=== PATIENT | male | born 1985 | race Caucasian/White ===

== ENCOUNTER 2020-12-11 15:15 | Emergency (ER) | payer OTHER, SELFPAY ==
--- NOTE | ~2020-12-11 | XR_ITS ---
EXAMINATION: XR wrist RT min 3V DATE: 12/11/2020 15:36 INDICATION: Right wrist pain. Fall. TECHNIQUE: 4 views of right wrist were obtained. COMPARISON: None. FINDINGS: Bone alignment is normal. There is a nondisplaced oblique fracture of radial styloid with e xtension of a fracture line to the lunate fossa. There is no involvement of the distal radioulnar isiah nt. The ulnar styloid is intact. Joint spaces are normal. IMPRESSION: 1. Nondisplaced oblique fracture of the radial styloid. Reviewed, dictated and finalized at location A. HAND
[2020-12-11 15:21] VITALS: BP 156/66; PULSE 95; RESP 16; TEMP 36.6; O2SAT 100
[2020-12-11 15:30] VITALS: BP 156/66; PULSE 95; RESP 16; TEMP 36.6; O2SAT 100
--- NOTE | 2020-12-11 15:42 | ED.UPPEXIN ---
HPI - Extremity Injury (Upper) General Chief Complaint: Extremity Injury, Upper Stated Complaint: right Wrist Injury Time Seen by Provider: 12/11/20 15:43 Source: patient and RN notes reviewed Mode of arrival: ambulatory Limitations: no limitations History of Present Illness HPI narrative: 35 year old male who fell on the ice at his home within past hour prior to arrival at [facility]. Patient states that he tried to catch himself with his right hand and he felt a pop in his writ area with pain and swelling noted to dorsal aspect of his right wrist. Patient states that pain increases with attempted movement of his wrist, has taken Ibuprofen prior to arrival and has applied ice to his right wrist. Patient has strong right radial pulse, noted swelling to dorsal area of right wrist with point tenderness to radial aspect of wrist. Patient denies any tingling or numbness to his right forearm or fingers, nail beds have brisk capillary refill, describes pain as dull ache rates at 5/10. Patient is right hand dominant. MD complaint: injury to: right Onset (ago): hour(s) (1) Other Extremity Injury: Right: wrist (right wrist) Handedness: right Place: home and outdoors Severity: moderate Severity scale (1-10): 5 Relieving factors: rest Exacerbating factors: movement of extremity Context: fall Related Data Home Medications Medication Instructions Recorded Confirmed No Home Medications 12/11/20 12/11/20 Allergies Allergy/AdvReac Type Severity Reaction Status Date / Time No Known Drug Allergies Allergy Unknown Unknown Verified 12/11/20 15:29 Review of Systems Review of Systems: Narrative: CONSTITUTIONAL: Denies fever, chills, or sweats. EYES: Denies visual changes, redness, or discharge. ENT: Denies rhinorrhea, congestion, sore throat, or otalgia. CARDIOVASCULAR: Denies chest pain, palpitations, or edema. RESPIRATORY: Denies cough or dyspnea. GASTROINTESTINAL: Denies abdominal pain, nausea, vomiting, or diarrhea. GENITOURINARY: Denies dysuria or hematuria. SKIN: Denies rash or itching. MUSCULOSKELETAL: Denies back pain,positive for right wrist pain, or myalgia. NEUROLOGIC: Denies headache, numbness, or weakness. PSYCHIATRIC: Denies anxiety or depression. All systems reviewed & are unremarkable except as noted in HPI and below PMFSH Past Medical History Medical History (Updated 12/12/20 @ 00:00 by Elbert Benoit) GERD (gastroesophageal reflux disease) Sprain of medial collateral ligament of knee Surgical History Surgical History (Updated 12/11/20 @ 15:58 by Tata Jaramillo NP) History of wisdom tooth extraction, class II edentulism Family History Family History (Updated 12/11/20 @ 16:02 by Tata Jaramillo NP) Father Hypertension Social History Social History (Updated 12/11/20 @ 16:02 by Tata Jaramillo NP) Smoking status: Never smoker Alcohol intake: current Alcohol use details: social Substance use: never Living arrangements: with family Gender identity (if verbalized by the patient): Male Comments At time of signature, agree with nursing past medical, surgical, social and family history. There is no relevant family history pertinent to the presenting complaint Exam Narrative: Exam Narrative: GENERAL: Well-appearing, well-nourished, and in mild acute distress. HEAD: Normocephalic, atraumatic. EYES: PERRLA and EOMI. ENT: Nares clear, no rhinorrhea or epistaxis. Mucous membranes moist. NECK: Supple.no lymphadenopathy CHEST: Clear to auscultation. No respiratory distress.SAO2 100% on room air. HEART: Regular rate and rhythm. No murmur heard. Normal peripheral pulses. ABDOMEN: Soft, nontender, nondistended, normal active bowel sounds. EXTREMITIES: Normal range of motion. No edema with exception to pain and swelling to dorsal aspect of right wrist with point tenderness to radial area of wrist and increase in pain with attempted movement of wrist.Patient has strong right radial pulse with
== END 2020-12-11 16:20 | disposition home or self-care (01) ==
PROVIDERS: Emergency Provider Registered Nurse; PCP Family Medicine
DX: S52.514A Nondisplaced fracture of right radial styloid process, initial encounter for closed fracture (principal); W00.0XXA Fall on same level due to ice and snow, initial encounter; K21.9 Gastro-esophageal reflux disease without esophagitis
CPT/HCPCS: 29125; 73110; 99204; A4565; G0463

== ENCOUNTER 2025-06-07 08:13 | Emergency (ER) | payer OTHER, SELFPAY ==
--- NOTE | ~2025-06-07 | XR_ITS ---
EXAM/ PROCEDURE: XR foot RT min 3V - 06/07/2025 8:32 CDT HISTORY: 40 years old Male with pain/bruising Rt 5th toe, stubbed last night COMPARISON: None available TECHNIQUE: Four view(s) FINDINGS/ IMPRESSION: Acute nondisplaced transverse fracture of the base of the fifth proximal phalanx. Surrounding soft ti ssue injury. Chronic healing fracture versus os perineum at the base of the fifth metatarsal. Correlate with point tenderness to rule out acute/subacute fracture at this spot. Joint space narrowing, subchondral sclerosis, subchondral cyst formation and osteophyte formation, co mpatible with moderate osteoarthritis. Reviewed, dictated and finalized at location A.
--- NOTE | 2025-06-07 08:16 | ED.LOWEXIN ---
HPI - Extremity Injury (Lower) General Chief Complaint: Extremity Injury, Lower Stated Complaint: toe pain r foot Time Seen by Provider: 06/07/25 08:25 Source: patient, RN notes reviewed and old records reviewed Mode of arrival: ambulatory Limitations: no limitations History of Present Illness HPI Narrative: 40-year-old male presents to the [facility] with complaints of 5th toe right foot pain after stubbing it. Patient reports that he stubbed the 5th toe on a piece of furniture approximately 7:00 p.m. last night. Did take ibuprofen this morning. Pain with walking. No pain with rest and elevation. Mild bruising at the Onset (ago): hour(s) (13) Treatments prior to arrival: NSAIDS Related Data Home Medications ?Medication ?Instructions ?Recorded ?Confirmed ?Last Taken ?Type No Home Medications 12/11/20 06/07/25 Unknown History Allergies Allergy/AdvReac Type Severity Reaction Status Date / Time No Known Drug Allergies Allergy Unknown Unknown Verified 06/07/25 08:26 Review of Systems Review of Systems: All systems reviewed & are unremarkable except as noted in HPI and below Constitutional: Constitutional: Reports no additional constitutional complaints Musculoskeletal: Musculoskeletal: Reports as per HPI, Reports arthralgias, Denies joint swelling and Denies numbness Integumentary/Breasts: Skin/Breast: Reports as per HPI PMFSH Past Medical History Medical History Sprain of medial collateral ligament of knee GERD (gastroesophageal reflux disease) Surgical History Surgical History History of wisdom tooth extraction, class II edentulism Family History Family History Father Hypertension Social History Social History Smoking status: Never smoker Alcohol intake: current Alcohol use details: social Substance use: never Living arrangements: with family Gender identity (if verbalized by the patient): Male Comments At the time of my signature, I reviewed and agree with the nursing past medical, surgical, social, and family history. There is no relevant family history pertinent to the patient complaint. Exam Const: General: cooperative, healthy appearing, comfortable, no acute distress, well developed, alert and well nourished Nutritional Appearance: well nourished Orientation/consciousness: patient oriented x3 Limitations: no limitations HENMT: Head: normal to inspection Eyes: General: appearance normal, both eyes and all related structures Alignment and Position: alignment normal Neck: Neck: normal visual inspection, full ROM, no lymphadenopathy and no meningeal signs Chest: Chest palpation & inspection: normal inspection of the chest Resp: Effort & Inspection: normal respiratory effort and able to speak in complete sentences Cardio: Rate: regular rate Neuro: General: patient oriented x3, gait normal, moves all extremities and no meningeal signs Cognition (Neuro): normal cognition Speech: normal speech Gait exam (Neuro): Normal gait present Extrem: General: normal to inspection, full ROM, capillary refill normal and normal gait Right lower extremity: foot Details: tenderness Location: of another digit Location: the 5th digit and along the middle phalanx and ecchymosis dorsal 5th toe Ankle/foot/toe images:  1. Bruising is noted, tenderness to the proximal phalanx Mild swelling noted to the phalanx. Capillary refill under 2 seconds, sensation intact Psych: Appearance: grossly normal and well kempt Mental Status: mental status grossly normal Speech and movement: Normal speech and movement present and Clear speech present Affect: normal affect Attitude: cooperative Course Course Level of Care: Express Care Visit Vital Signs Vital signs: Vital Signs Temperature 97.1 F L 06/07/25 08:25 Pulse Rate 71 06/07/25 08:25 Respiratory Rate 16 06/07/25 08:25 Blood Pressure 133/90 06/07/25 08:25 Pulse Oximetry 99 06/07/25 08:25 Temperature 97.1 F L 06/07/25 08:25 Pulse Rate 71 06/07/25 08:25 Respiratory Rate 16 06/07/25 08:25 Blood Pressure 133/90 06/07/25 08:25 Pulse Oximetry 99 06/07/25 08:25 Reviewed MDM - Extremity Injury (Lower) MDM Narrative Medical decision making narrative: Offered alexis taping and post op shoe, Patient declined. Patient sitting in exam room. Patient is nontoxic, vitals stable. Patient presents with concerns of a fracture toe. Phalanx per Radiology is broken, nondisplaced. Discussed alexis taping and a postop shoe which patient declined. Patient appropriate for outpatient treatment with close follow-up Discharge instructions reviewed with patient, as well as provided in writing per nursing staff. The instructions also include specific and strict return/GO TO THE ER as well as f/u information. All questions have been answered, and the patient deny any further questions with discharge and discharge plan. Some parts of this dictation were generated by voice recognition software and may contain typographical and/or grammatical inaccuracies. Differential Diagnosis Differential diagnosis: Likely fracture of toe and other (Toe contusion, toe sprain) Imaging Data Radiologist's impression: EXAM/ PROCEDURE: XR foot RT min 3V - 06/07/2025 8:32 CDT HISTORY: 40 years old Male with pain/bruising Rt 5th toe, stubbed last night COMPARISON: None available TECHNIQUE: Four view(s) FINDINGS/ IMPRESSION: Acute nondisplaced transverse fracture of the base of the fifth proximal phalanx. Surrounding soft tissue injury. Chronic healing fracture versus os perineum at the base of the fifth metatarsal. Correlate with point tenderness to rule out acute/subacute fracture at this spot. Joint space narrowing, subchondral sclerosis, subchondral cyst formation and osteophyte formation, compatible with moderate osteoarthritis. Critical Care Time Critical Care Time Critical Care Time: No Discharge Plan Discharge Clinical Impression: Fracture of toe of right foot Qualifiers: Encounter type: initial encounter Toe: lesser toe Fracture type: closed Fracture alignment: nondisplaced Patient Disposition: Home Condition: Stable Instructions: Toe Fracture (ED) Additional Instructions: Your Xray did show a fracture of your 5th toe Wear good supportive shoes at all times. Ice should be applied to help reduce swelling. It can be used for 15-20 minutes, every 2-3 hours while awake. Do not apply ice directly to your skin. You can alternate ibuprofen 600mg and Tylenol 650mg every 4 hours as needed for pain Please schedule a follow-up visit with your personal physician for further evaluation and treatment within 2 weeks especially if symptoms persist. Follow-up with podiatry as needed For new or worsening symptoms go directly to the emergency room Patient Language: Russian Prescriptions: No Action No Home Medications Follow-up/Referrals: Chong Mattson Jr., NANCY [Physician] - Guanaco Gallegos DPM [Physician] - UNKNOWN,DOCTOR [Non-Staff] - Time of Disposition: 08:54
[2025-06-07 08:25] VITALS: BP 133/90; PULSE 71; RESP 16; TEMP 36.2; O2SAT 99
== END 2025-06-07 09:10 | disposition home or self-care (01) ==
PROVIDERS: Emergency Provider Nurse Practitioner
DX: S92.514A Nondisplaced fracture of proximal phalanx of right lesser toe(s), initial encounter for closed fracture (principal); W22.03XA Walked into furniture, initial encounter; K21.9 Gastro-esophageal reflux disease without esophagitis
CPT/HCPCS: 73630; 99213; G0463